=== PATIENT | female | born 1980 | race Caucasian/White ===

== ENCOUNTER 2020-07-30 12:09 | Observation (INO) | payer BC ==
[2020-07-30] MEDS ORDERED: Sodium Chloride 0.9% 10 ML Syringe FLUSH PRN (13:53)
[2020-07-30] MEDS ORDERED: Sodium Chloride 0.9% 10 ML SDV IV PRN (13:53)
[2020-07-30] MEDS ORDERED: Sodium Chloride 0.9% 2.5 ML Syringe FLUSH PRN (13:53)
[2020-07-30] MEDS ORDERED: Lactated Ringers 1,000 ML IV SCH ×2 (14:00→15:00)
--- NOTE | 2020-07-30 15:57 | US ---
INDICATION: Spotting. Contractions TECHNIQUE: Limited transabdominal obstetrical ultrasound, with a biophysical profile. COMPARISON: None available FINDINGS: A single live intrauterine gestation is seen in cephalic presentation. There is cardiac activity with a heart rate of 133-137 BPM. measurements are not performed and anatomy is not evaluated. The placenta is anterior fundal, to the maternal right. The amniotic fluid single deepest pocket measures 3 cm with a measured ÁLVARO of 4.5 cm. A biophysical profile was performed with a score of 2/2 for movements, tone and amniotic fluid, as score 0/2 for breathing, and a total score of 6/8. Neither ovary is visualized. IMPRESSION: A single live intrauterine gestation. A biophysical profile score of 6/8. A low ÁLVARO at 4.5 cm, however the amniotic Fluid single deepest pocket is within normal limits at 3 cm. Correlate clinically. measurements are not performed and anatomy is not evaluated. Follow-up, as clinically indicated. Dictated by Hakan Garcia MD @ Jul 30 2020 3:50PM Signed by Dr. Hakan Garcia @ Jul 30 2020 3:56PM
--- NOTE | 2020-07-30 16:01 | US ---
INDICATION: Spotting and contractions TECHNIQUE: Limited transvaginal obstetrical ultrasound for evaluation of the cervix COMPARISON: None available FINDINGS/IMPRESSION: The cervix is closed, measuring up to 3.7 cm in length. Focal contour irregularity near the internal cervical os may be related to a contraction. Please refer to the transabdominal obstetrical ultrasound report for further detail on the intra uterine gestation. Dictated by Hakan Garcia MD @ Jul 30 2020 3:50PM Signed by Dr. Hakan Garcia @ Jul 30 2020 3:59PM
[2020-07-30] MEDS: Lactated Ringers 1,000 ML IV SCH ×2 (16:20→22:22)
[2020-07-30] MEDS: Betamethasone Acetate/Betamethasone Sod Phosphate 30 MG/5 ML MDV IM ONE (22:17)
[2020-07-30] MEDS: Enoxaparin 40 MG/0.4 ML Syringe SUBCUT SCH (22:20)
[2020-07-30] MEDS: Acetaminophen 500 MG Tab PO PRN (23:34)
[2020-07-31] MEDS: Lactated Ringers 1,000 ML IV SCH ×2 (05:52→14:10)
--- NOTE | 2020-07-31 09:22 | US ---
INDICATION: Previous low ÁLVARO. COMPARISON: Ob ultrasound 07/30/2020. TECHNIQUE: Limited biophysical profile. Real time hays scale imaging of the fetus was performed. Without non-stress testing. FINDINGS: Sonographic imaging demonstrates a single living intrauterine gestation. Fetus demonstrates a regular cardiac rate of 136 beats per minute. Fetus has a transverse orientation with head to the maternal right. The amniotic fluid volume appears normal and there is a four-quadrant fluid volume index measurement of 9.02 cm. IMPRESSION: Normal ÁLVARO measuring 9.02 cm on today`s exam. Dictated by Justa Casillas MD @ Jul 31 2020 9:16AM Signed by Dr. Justa Casillas @ Jul 31 2020 9:21AM
--- NOTE | 2020-07-31 11:39 | US ---
EXAM DATE: 07/30/20 PATIENT'S AGE: 39 Patient: ZACARIAS FORD Facility: [facility] Site . Site : [id number] Study: US-OB Pelvis -07/30/2020 3:19:16 PM Ordering Physician: Kiko Arteaga Final Report: INDICATION: Spotting. Contractions TECHNIQUE: Limited transabdominal obstetrical ultrasound, with a biophysical profile. COMPARISON: None available FINDINGS: A single live intrauterine gestation is seen in cephalic presentation. There is cardiac activity with a heart rate of 133-137 BPM. measurements are not performed and anatomy is not evaluated. The placenta is anterior fundal, to the maternal right. The amniotic fluid single deepest pocket measures 3 cm with a measured ÁLVARO of 4.5 cm. A biophysical profile was performed with a score of 2/2 for movements, tone and amniotic fluid, as score 0/2 for breathing, and a total score of 6/8. Neither ovary is visualized. IMPRESSION: A single live intrauterine gestation. A biophysical profile score of 6/8. A low ÁLVARO at 4.5 cm, however the amniotic Fluid single deepest pocket is within normal limits at 3 cm. Correlate clinically. measurements are not performed and anatomy is not evaluated. Follow- up, as clinically indicated. Dictated by Hakan Garcia MD @ Jul 30 2020 3:50PM Signed by: Hakan Garcia MD @07/30/2020 3:56:24 PM (Electronic Signature) Report Signed by Proxy. SILVINA
[2020-07-31] MEDS: Acetaminophen 500 MG Tab PO PRN (14:11)
--- NOTE | 2020-07-31 19:56 | US ---
INDICATION: Follow-up reportedly low amniotic fluid volume index. TECHNIQUE: Limited transabdominal obstetrical ultrasound. COMPARISON: July 30, 2020. FINDINGS: Single living intrauterine . Transverse lie with head toward the maternal right side. heart rate 136 beats per minute. Amniotic fluid volume index 9.0 cm previously 4.8 cm. IMPRESSION: Single living intrauterine . heart rate 136 beats per minute. Amniotic fluid volume index is now calculated at 9 cm. Dictated by Jozef Miller MD @ Jul 31 2020 7:52PM Signed by Dr. Jozef Miller @ Jul 31 2020 7:56PM
[2020-07-31] MEDS: Enoxaparin 40 MG/0.4 ML Syringe SUBCUT SCH (20:37)
[2020-07-31] MEDS: Betamethasone Acetate/Betamethasone Sod Phosphate 30 MG/5 ML MDV IM ONE (21:31)
[2020-07-31 21:51] VITALS: BP 134/78; PULSE 94
== END 2020-07-31 21:40 | disposition home or self-care (01) ==
LOC: MW.OBCHECK 12:09 → MW.OB 12:42 → MW.OBCHECK 16:30
PROVIDERS: ADMIT Obstetrics & Gynecology; ATTEND Obstetrics & Gynecology
DX: O26.853 Spotting complicating pregnancy, third trimester (principal); O98.513 Other viral diseases complicating pregnancy, third trimester; U07.1 COVID-19; O41.03X0 Oligohydramnios, third trimester, not applicable or unspecified; Z3A.32 32 weeks gestation of pregnancy
CPT/HCPCS: 59025; 76815; 76817; 76819; 81003; 84112; 87480; 87510; 87635; 87660; A9270; J0702; J1650; J7120; U0002

== ENCOUNTER 2020-08-22 20:05 | Inpatient (IN) | payer BC ==
[2020-08-22] MEDS: Lactated Ringers 1,000 ML IV SCH ×2 (22:00→22:42)
[2020-08-22] MEDS ORDERED: Water For Irrigation,Sterile 1,000 ML Container IRR PRN (22:02)
[2020-08-22] MEDS ORDERED: Misoprostol 200 MCG Tab PO PRN (22:02)
[2020-08-22] MEDS ORDERED: Nalbuphine 10 MG/1 ML Vial IVPUSH PRN (22:02)
[2020-08-22] MEDS ORDERED: Tranexamic Acid 1,000 MG in Sodium Chloride 0.9% 100 ML IV PRN (22:02)
[2020-08-22] MEDS ORDERED: Butorphanol 1 MG/ML SDV IVPUSH PRN (22:02)
[2020-08-22] MEDS ORDERED: Sodium Chloride 0.9% 10 ML Syringe FLUSH PRN (22:02)
[2020-08-22] MEDS ORDERED: Methylergonovine 0.2 MG/1 ML Amp IM PRN (22:02)
[2020-08-22] MEDS ORDERED: Sodium Chloride 0.9% 10 ML SDV IV PRN (22:02)
[2020-08-22] MEDS ORDERED: Lidocaine 1% 50 ML MDV INJECT PRN (22:02)
[2020-08-22] MEDS ORDERED: Carboprost Tromethamine 250 MCG/1 ML Amp IM PRN (22:02)
[2020-08-22] MEDS ORDERED: Sodium Chloride 0.9% 2.5 ML Syringe FLUSH PRN (22:02)
[2020-08-22] MEDS ORDERED: Betamethasone Acetate/Betamethasone Sod Phosphate 30 MG/5 ML MDV IM ONE (22:04)
[2020-08-22] MEDS ORDERED: Ampicillin 2 GM in Sodium Chloride 0.9% 100 ML IV ONE (22:05)
[2020-08-22] MEDS ORDERED: Oxytocin/0.9 % Sodium Chloride 30 UNIT/500 ML BAG IV SCH (22:15)
[2020-08-22] MEDS ORDERED: fentaNYL 100 MCG/2 ML SDV ONE (22:23)
[2020-08-22] MEDS ORDERED: Ropivacaine HCl/PF 100 ML ONE (22:24)
[2020-08-22 22:46] LABS: BLOOD UREA NITROGEN,BUN 8 mg/dL (7.0-18.0); CARBON DIOXIDE,CO2 21.2 mmol/L (21.0-32.0); CHLORIDE,CL 101 mmol/L (98-107); GLUCOSE RANDOM 109 mg/dL (74-106); POTASSIUM,K 3.8 mmol/L (3.5-5.1); SODIUM,NA 136 mmol/L (136-145)
--- NOTE | 2020-08-22 22:55 | PCM.PREANE ---
Preanesthetic Assessment - Anesthesia/Transfusion/Family Hx Anesthesia History: Prior Anesthesia Without Reaction Family History of Anesthesia Reaction: No Transfusion History: No Prior Transfusion(s) - Physical Assessment NPO Status Date: 08/22/20 NPO Status Time: 20:00 ASA Class: 2 - Lab Values: Laboratory Last Values WBC 11.68 K/uL (4.0-11.0) H 08/22/20 22:00 RBC 4.30 M/uL (4.30-5.90) 08/22/20 22:00 Hgb 10.6 g/dL (12.0-16.0) L 08/22/20 22:00 Hct 34.3 % (36.0-46.0) L 08/22/20 22:00 MCV 79.8 fL (80.0-98.0) L 08/22/20 22:00 MCH 24.7 pg (27.0-32.0) L 08/22/20 22:00 MCHC 30.9 g/dL (31.0-37.0) L 08/22/20 22:00 RDW Std Deviation 41.1 fl (28.0-62.0) 08/22/20 22:00 RDW Coeff of Gianna 14 % (11.0-15.0) 08/22/20 22:00 Plt Count 228 K/uL (150-400) 08/22/20 22:00 MPV 10.10 fL (7.40-12.00) 08/22/20 22:00 Nucleated RBC % 0.0 /100WBC 08/22/20 22:00 Nucleated RBCs # 0 K/uL 08/22/20 22:00 Sodium 136 mmol/L (136-145) 08/22/20 22:00 Potassium 3.8 mmol/L (3.5-5.1) 08/22/20 22:00 Chloride 101 mmol/L (98-107) 08/22/20 22:00 Carbon Dioxide 21.2 mmol/L (21.0-32.0) 08/22/20 22:00 BUN 8 mg/dL (7.0-18.0) 08/22/20 22:00 Creatinine 0.6 mg/dL (0.6-1.0) 08/22/20 22:00 Est Cr Clr Drug Dosing TNP 08/22/20 22:00 Estimated GFR (MDRD) > 60.0 ml/min 08/22/20 22:00 Glucose 109 mg/dL (74-106) H 08/22/20 22:00 Uric Acid 5.0 mg/dL (2.6-7.2) 08/22/20 22:00 Calcium 8.7 mg/dL (8.5-10.1) 08/22/20 22:00 Total Bilirubin 0.2 mg/dL (0.2-1.0) 08/22/20 22:00 AST 12 IU/L (15-37) L 08/22/20 22:00 ALT 16 IU/L (14-63) 08/22/20 22:00 Alkaline Phosphatase 463 U/L (46-116) H 08/22/20 22:00 Total Protein 6.5 g/dL (6.4-8.2) 08/22/20 22:00 Albumin 2.8 g/dL (3.4-5.0) L 08/22/20 22:00 Globulin 3.7 g/dL (2.6-4.0) 08/22/20 22:00 Albumin/Globulin Ratio 0.8 (0.9-1.6) L 08/22/20 22:00 - Allergies Allergies/Adverse Reactions: Allergies Allergy/AdvReac Type Severity Reaction Status Date / Time No Known Allergies Allergy Verified 07/30/20 17:09 - Acknowledgements Anesthesia Type Planned: Epidural Pt an Appropriate Candidate for the Planned Anesthesia: Yes Alternatives and Risks of Anesthesia Discussed w Pt/Guardian: Yes Pt/Guardian Understands and Agrees with Anesthesia Plan: Yes PreAnesthesia Questionnaire HEENT History: Reports: Other (See Below) Other HEENT History: wears contacts Genitourinary History: Reports: UTI, Recurrent 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: Psychiatric History: Reports: ADHD, Anxiety, Depression Endocrine/Metabolic History: Reports: None, Other (See Below) Other Endocrine/Metabolic History: hyperprolactinemia - Infectious Disease History Infectious Disease History: Reports: Novel Coronavirus - Past Surgical History Head Surgeries/Procedures: Reports: None HEENT Surgical History: Reports: None Female Surgical History: Reports: Section, LEEP Endocrine Surgical History: Reports: None - HOME MEDS Home Medications: Home Meds Desvenlafaxine Succinate [Pristiq] 100 mg PO DAILY 01/13/17 [History] Methylphenidate HCl [Concerta] 54 mg PO ASDIRECTED PRN 01/13/17 [History] - CURRENT (IN HOUSE) MEDS Current Meds: Current Medications Butorphanol Tartrate (Stadol) 1 mg IVPUSH Q1H PRN PRN Reason: Pain Carboprost Tromethamine (Hemabate Ds) 250 mcg IM ASDIRECTED PRN PRN Reason: Post Hemorrhage Lactated Ringer's (Ringers, Lactated) 1,000 mls @ 150 mls/hr IV ASDIRECTED ERIKA Oxytocin/Sodium Chloride (Oxytocin 30 Unit/500 Ml-Ns) 30 unit in 500 mls @ 999 mls/hr IV TITRATE ERIKA Tranexamic Acid 1,000 mg/ (Sodium Chloride) 110 mls @ 660 mls/hr IV ONETIME PRN PRN Reason: Bleeding Lidocaine HCl (Xylocaine 1%) 50 ml INJECT ONETIME PRN PRN Reason: Laceration repair Methylergonovine Maleate (Methergine) 0.2 mg IM ASDIRECTED PRN PRN Reason: Post Hemorrhage Misoprostol (Cytotec) 200 mcg PO ONETIME PRN PRN Reason: Post Hemorrhage Nalbuphine HCl (Nubain) 10 mg IVPUSH Q1H PRN PRN Reason: Pain (severe 7-10) Sodium Chloride (Saline Flush) 10 ml FLUSH ASDIRECTED PRN PRN Reason: Keep Vein Open Sodium Chloride (Saline Flush) 2.5 ml FLUSH ASDIRECTED PRN PRN Reason: Keep Vein Open Sodium Chloride (Normal Saline) 10 ml IV ASDIRECTED PRN PRN Reason: IV Use Sterile Water (Sterile Water For Irrigation) 1,000 ml IRR ASDIRECTED PRN PRN Reason: delivery Discontinued Medications Betamethasone Acet/Betameth SodPhos (Celestone Soluspan 6 Mg/Ml) 12 mg IM ONETIME ONE Stop: 08/22/20 22:05 Last Admin: 08/22/20 22:24 Dose: 12 mg Documented by: Fentanyl (Sublimaze) Confirm Administered Dose 100 mcg .ROUTE .STK-MED ONE Stop: 08/22/20 22:24 Ampicillin Sodium 2 gm/ Sodium (Chloride) 100 mls @ 200 mls/hr IV ONETIME ONE Stop: 08/22/20 22:34 Last Admin: 08/22/20 22:16 Dose: 200 mls/hr Documented by: Ropivacaine (Naropin 0.2%) Confirm Administered Dose 100 mls @ as directed .ROUTE .[facility] ONE Stop: 08/22/20 22:25
--- NOTE | 2020-08-22 22:58 | PCM.PRNOTE ---
- Free Text/Narrative Note: Anes Note Patient requests epidural for L&D. Sitting position, level L3-L4 midline approach. Sterile technique. Chloraprep scrub to lumbar area. Sterile fenestrated drape applied. Epidural space easily achieved single attempt with ease using LUKE technique. LUKE at 3 cm. Cath threaded 5 cm with ease. Cath secured using sterile clear adhesive dressing. Test 1040 3 cc 1.5% lido with epi negative Load 10 cc 0.2 % ropiviciane with 1 mcg cc fentanyl in slow divided doses at 1043 146 Pump started with 90 cc same solution. Rate is 8 cc hr with 6 cc q 20 min prn bolus. Claudette well. Time with patient [id number] True Skinner CRNA
[2020-08-23] MEDS ORDERED: Ampicillin 1 GM in Sodium Chloride 0.9% 50 ML IV SCH (01:30)
[2020-08-23] MEDS: Lactated Ringers 1,000 ML IV SCH (01:51)
[2020-08-23] MEDS ORDERED: Benzocaine/Menthol 20%-0.5% Spray 78 GM Cannister TOP PRN (04:33)
[2020-08-23] MEDS ORDERED: Bisacodyl 10 MG Supp RECTAL PRN (04:33)
[2020-08-23] MEDS ORDERED: Docusate Sodium 100 MG Cap PO PRN (04:33)
[2020-08-23] MEDS ORDERED: Ibuprofen 400 MG Tab PO PRN (04:33)
[2020-08-23] MEDS ORDERED: Lanolin 100% Cream 7 GM Tube TOP PRN (04:33)
[2020-08-23] MEDS ORDERED: Acetaminophen 500 MG Tab PO PRN (04:33)
[2020-08-23] MEDS ORDERED: Witch Hazel Medicated Pads 40/Jar TOP PRN (04:33)
--- NOTE | 2020-08-23 05:46 | PCM.POSTAN ---
POST ANESTHESIA ASSESSMENT - MENTAL STATUS Mental Status: Alert - RESPIRATORY Respiratory Status: Respiratory Rate WNL - CARDIOVASCULAR CV Status: Pulse Rate WNL - GASTROINTESTINAL GI Status: No Symptoms - POST OP HYDRATION Hydration Status: Adequate & Stable
[2020-08-23] MEDS: Acetaminophen 500 MG Tab PO PRN ×4 (06:30→21:15)
[2020-08-23] MEDS: Ibuprofen 800 MG Tab PO PRN ×3 (09:44→22:53)
--- NOTE | 2020-08-24 08:05 | PCM48HPAN ---
Post Anesthesia Note - EVALUATION WITHIN 48HRS OF ANESTHETIC Vital Signs in Normal Range: Yes Patient Participated in Evaluation: Yes Respiratory Function Stable: Yes Airway Patent: Yes Cardiovascular Function Stable: Yes Hydration Status Stable: Yes Pain Control Satisfactory: Yes Nausea and Vomiting Control Satisfactory: Yes Mental Status Recovered: Yes Vital Signs: Last Vital Signs Temp 36.3 C 08/24/20 06:00 Pulse 91 08/24/20 06:00 Resp 16 08/24/20 06:00 BP 118/75 08/24/20 06:00 Pulse Ox 100 08/24/20 06:00
[2020-08-24] MEDS: Acetaminophen 500 MG Tab PO PRN ×2 (08:50→15:39)
[2020-08-24] MEDS: Ibuprofen 800 MG Tab PO PRN ×3 (08:51→21:32)
--- NOTE | 2020-08-24 11:59 | PCM.DEL ---
L & D Note - General Info Date of Service: 08/23/20 - Delivery Note Labor: Spontaneous Delivery Outcome: Livebirth Delivery Mode: Spontaneous Presentation: Right Occiput Anterior (SHAINA) Nuchal Cord: None Anesthesia Type: Epidural Amniotic Fluid Description: Clear Laceration: None Placenta: Intact, Spontaneous Cord: 3 Vessels Estimated Blood Loss: 200 Resuscitation Needed: Yes Provider: Jenni Hoover Score 1 min: 4 Score 5 min: 5 Second Stage Interventions: Reports: Pushing Effectively - General Info Date of Service: 08/23/20 - Patient Data Vitals - Most Recent: Last Vital Signs Temp 36.9 C 08/24/20 08:40 Pulse 82 08/24/20 08:40 Resp 16 08/24/20 08:40 BP 119/76 08/24/20 08:40 Pulse Ox 98 08/24/20 08:40 Weight - Most Recent: 165 lb Lab Results Last 24 Hours: Laboratory Results - last 24 hr 08/22/20 08/24/20 Range/Units 23:20 06:00 Hgb 8.8 L (12.0-16.0) g/dL Hct 28.2 L (36.0-46.0) % Group B Strep (PCR) NEGATIVE (NEGATIVE) Med Orders - Current: Current Medications Acetaminophen (Tylenol Extra Strength) 500 mg PO Q4H PRN PRN Reason: Pain Acetaminophen (Tylenol Extra Strength) 1,000 mg PO Q4H PRN PRN Reason: Pain Last Admin: 08/24/20 08:50 Dose: 1,000 mg Documented by: Benzocaine/Menthol (Dermoplast Pain Relief 20%-0.5% [place]) 78 gm TOP ASDIRECTED PRN PRN Reason: Perineal Comfort Measure Bisacodyl (Dulcolax) 10 mg RECTAL ONETIME PRN PRN Reason: Constipation Butorphanol Tartrate (Stadol) 1 mg IVPUSH Q1H PRN PRN Reason: Pain Carboprost Tromethamine (Hemabate Ds) 250 mcg IM ASDIRECTED PRN PRN Reason: Post Hemorrhage Docusate Sodium (Colace) 100 mg PO BID PRN PRN Reason: Constipation Emollient Ointment (Lansinoh Hpa) 0 gm TOP ASDIRECTED PRN PRN Reason: Sore Nipples Lactated Ringer's (Ringers, Lactated) 1,000 mls @ 150 mls/hr IV ASDIRECTED [facility] Last Admin: 08/23/20 01:51 Dose: 125 mls/hr Documented by: Oxytocin/Sodium Chloride (Oxytocin 30 Unit/500 Ml-Ns) 30 unit in 500 mls @ 999 mls/hr IV TITRATE [facility] Tranexamic Acid 1,000 mg/ (Sodium Chloride) 110 mls @ 660 mls/hr IV ONETIME PRN PRN Reason: Bleeding Ampicillin Sodium 1 gm/ Sodium (Chloride) 50 mls @ 100 mls/hr IV Q4H [facility] Last Admin: 08/23/20 02:45 Dose: 100 mls/hr Documented by: Ibuprofen (Motrin) 400 mg PO Q4H PRN PRN Reason: Pain Ibuprofen (Motrin) 800 mg PO Q6H PRN PRN Reason: Pain Last Admin: 08/24/20 08:51 Dose: 800 mg Documented by: Lidocaine HCl (Xylocaine 1%) 50 ml INJECT ONETIME PRN PRN Reason: Laceration repair Methylergonovine Maleate (Methergine) 0.2 mg IM ASDIRECTED PRN PRN Reason: Post Hemorrhage Misoprostol (Cytotec) 200 mcg PO ONETIME PRN PRN Reason: Post Hemorrhage Nalbuphine HCl (Nubain) 10 mg IVPUSH Q1H PRN PRN Reason: Pain (severe 7-10) Sodium Chloride (Saline Flush) 10 ml FLUSH ASDIRECTED PRN PRN Reason: Keep Vein Open Sodium Chloride (Saline Flush) 2.5 ml FLUSH ASDIRECTED PRN PRN Reason: Keep Vein Open Sodium Chloride (Normal Saline) 10 ml IV ASDIRECTED PRN PRN Reason: IV Use Sterile Water (Sterile Water For Irrigation) 1,000 ml IRR ASDIRECTED PRN PRN Reason: delivery Witch Kami (Tucks) 1 pad TOP ASDIRECTED PRN PRN Reason: comfort care Discontinued Medications Betamethasone Acet/Betameth SodPhos (Celestone Soluspan 6 Mg/Ml) 12 mg IM ONETIME ONE Stop: 08/22/20 22:05 Last Admin: 08/22/20 22:24 Dose: 12 mg Documented by: Fentanyl (Sublimaze) Confirm Administered Dose 100 mcg .ROUTE .STK-MED ONE Stop: 08/22/20 22:24 Ampicillin Sodium 2 gm/ Sodium (Chloride) 100 mls @ 200 mls/hr IV ONETIME ONE Stop: 08/22/20 22:34 Last Admin: 08/22/20 22:16 Dose: 200 mls/hr Documented by: Ropivacaine (Naropin 0.2%) Confirm Administered Dose 100 mls @ as directed .ROUTE .STK-MED ONE Stop: 08/22/20 22:25 - Problem List Review Problem List Initiated/Reviewed/Updated: Yes - Assessment Assessment:: 39yo at 35w6d presented with labor and SROM. s/p . Baby required resuccitation but has improved and is off O2. - Plan Plan:: Routine care. Discharge pending baby status.
--- NOTE | 2020-08-24 12:14 | PCM.PNPP ---
- General Info Date of Service: 08/24/20 Functional Status: Reports: Pain Controlled, Tolerating Diet, Ambulating, Urinating, Other (Attempting to breastfeed, has not produced a lot of milk so far. Baby is doing well, off O2.) - Review of Systems General: Reports: No Symptoms HEENT: Reports: No Symptoms Pulmonary: Reports: No Symptoms Cardiovascular: Reports: No Symptoms Gastrointestinal: Reports: No Symptoms Genitourinary: Reports: No Symptoms Musculoskeletal: Reports: No Symptoms Skin: Reports: No Symptoms Neurological: Reports: No Symptoms Psychiatric: Reports: No Symptoms - Patient Data Vital Signs - Most Recent: Last Vital Signs Temp 36.9 C 08/24/20 08:40 Pulse 82 08/24/20 08:40 Resp 16 08/24/20 08:40 BP 119/76 08/24/20 08:40 Pulse Ox 98 08/24/20 08:40 Weight - Most Recent: 165 lb Lab Results - Last 24 Hours: Laboratory Results - last 24 hr 08/22/20 08/24/20 Range/Units 23:20 06:00 Hgb 8.8 L (12.0-16.0) g/dL Hct 28.2 L (36.0-46.0) % Group B Strep (PCR) NEGATIVE (NEGATIVE) Med Orders - Current: Current Medications Acetaminophen (Tylenol Extra Strength) 500 mg PO Q4H PRN PRN Reason: Pain Acetaminophen (Tylenol Extra Strength) 1,000 mg PO Q4H PRN PRN Reason: Pain Last Admin: 08/24/20 08:50 Dose: 1,000 mg Documented by: Benzocaine/Menthol (Dermoplast Pain Relief 20%-0.5% [place]) 78 gm TOP ASDIRECTED PRN PRN Reason: Perineal Comfort Measure Bisacodyl (Dulcolax) 10 mg RECTAL ONETIME PRN PRN Reason: Constipation Butorphanol Tartrate (Stadol) 1 mg IVPUSH Q1H PRN PRN Reason: Pain Carboprost Tromethamine (Hemabate Ds) 250 mcg IM ASDIRECTED PRN PRN Reason: Post Hemorrhage Docusate Sodium (Colace) 100 mg PO BID PRN PRN Reason: Constipation Emollient Ointment (Lansinoh Hpa) 0 gm TOP ASDIRECTED PRN PRN Reason: Sore Nipples Lactated Ringer's (Ringers, Lactated) 1,000 mls @ 150 mls/hr IV ASDIRECTED [facility] Last Admin: 08/23/20 01:51 Dose: 125 mls/hr Documented by: Oxytocin/Sodium Chloride (Oxytocin 30 Unit/500 Ml-Ns) 30 unit in 500 mls @ 999 mls/hr IV TITRATE [facility] Tranexamic Acid 1,000 mg/ (Sodium Chloride) 110 mls @ 660 mls/hr IV ONETIME PRN PRN Reason: Bleeding Ampicillin Sodium 1 gm/ Sodium (Chloride) 50 mls @ 100 mls/hr IV Q4H [facility] Last Admin: 08/23/20 02:45 Dose: 100 mls/hr Documented by: Ibuprofen (Motrin) 400 mg PO Q4H PRN PRN Reason: Pain Ibuprofen (Motrin) 800 mg PO Q6H PRN PRN Reason: Pain Last Admin: 08/24/20 08:51 Dose: 800 mg Documented by: Lidocaine HCl (Xylocaine 1%) 50 ml INJECT ONETIME PRN PRN Reason: Laceration repair Methylergonovine Maleate (Methergine) 0.2 mg IM ASDIRECTED PRN PRN Reason: Post Hemorrhage Misoprostol (Cytotec) 200 mcg PO ONETIME PRN PRN Reason: Post Hemorrhage Nalbuphine HCl (Nubain) 10 mg IVPUSH Q1H PRN PRN Reason: Pain (severe 7-10) Sodium Chloride (Saline Flush) 10 ml FLUSH ASDIRECTED PRN PRN Reason: Keep Vein Open Sodium Chloride (Saline Flush) 2.5 ml FLUSH ASDIRECTED PRN PRN Reason: Keep Vein Open Sodium Chloride (Normal Saline) 10 ml IV ASDIRECTED PRN PRN Reason: IV Use Sterile Water (Sterile Water For Irrigation) 1,000 ml IRR ASDIRECTED PRN PRN Reason: delivery Witch Kami (Tucks) 1 pad TOP ASDIRECTED PRN PRN Reason: comfort care Discontinued Medications Betamethasone Acet/Betameth SodPhos (Celestone Soluspan 6 Mg/Ml) 12 mg IM ONETIME ONE Stop: 08/22/20 22:05 Last Admin: 08/22/20 22:24 Dose: 12 mg Documented by: Fentanyl (Sublimaze) Confirm Administered Dose 100 mcg .ROUTE .STK-MED ONE Stop: 08/22/20 22:24 Ampicillin Sodium 2 gm/ Sodium (Chloride) 100 mls @ 200 mls/hr IV ONETIME ONE Stop: 08/22/20 22:34 Last Admin: 08/22/20 22:16 Dose: 200 mls/hr Documented by: Ropivacaine (Naropin 0.2%) Confirm Administered Dose 100 mls @ as directed .ROUTE .STK-MED ONE Stop: 08/22/20 22:25 - Infant Interaction Infant Disposition, : to Nursery Interaction: Holding Infant Feeding: Attempted ; Nursed Fair/Poor Support Person: - Recovery Exam Fundal Tone: Firm Fundal Level: 1 Fingerbreadths Below Umbilicus Fundal Placement: Midline Lochia Amount: Scant Lochia Color: Rubra/Red Perineum Description: Intact, Minimal Bruising/Swelling Episiotomy/Laceration: None Bladder Status: Voiding Urinary Elimination: Voided - Exam General: Alert, Oriented, Cooperative, No Acute Distress HEENT: Pupils Equal, Pupils Reactive Neck: Supple, Trachea Midline, No JVD Lungs: Normal Respiratory Effort GI/Abdominal Exam: Soft, Non-Tender, No Distention Extremities: Normal Inspection, Normal Range of Motion, Non-Tender, No Pedal Edema Skin: Warm, Dry, Intact Neurological: No New Focal Deficit Psy/Mental Status: Alert, Normal Affect, Normal Mood - Problem List Review Problem List Initiated/Reviewed/Updated: Yes - Assessment Assessment:: 39yo at 35w6d presented with labor and SROM, PPD1 s/p . - Plan Plan:: - recovering well, ambulating and tolerating PO - , baby doing well - Hgb 8.8, bleeding light, denies s/s of anemia. Advised to start iron supplements Plan for discharge tomorrow.
--- NOTE | 2020-08-25 07:57 | PCM48HPAN ---
Post Anesthesia Note - EVALUATION WITHIN 48HRS OF ANESTHETIC Vital Signs in Normal Range: Yes Patient Participated in Evaluation: Yes Respiratory Function Stable: Yes Airway Patent: Yes Cardiovascular Function Stable: Yes Hydration Status Stable: Yes Pain Control Satisfactory: Yes Nausea and Vomiting Control Satisfactory: Yes Mental Status Recovered: Yes Vital Signs: Last Vital Signs Temp 36.7 C 08/25/20 03:25 Pulse 95 08/25/20 03:25 Resp 17 08/25/20 03:25 BP 114/70 08/25/20 03:25 Pulse Ox 97 08/25/20 03:25 - COMMENTS/OBSERVATIONS Free Text/Narrative:: The patient was awake and ambulating, and appeared in no acute distress. She has no complaints at this time. There were no apparent anesthetic complications at this time. Discharge from anesthesia service.
--- NOTE | 2020-08-25 10:11 | PCM.PNPP ---
- General Info Date of Service: 08/25/20 Functional Status: Reports: Pain Controlled, Tolerating Diet, Ambulating, Urinating - Review of Systems General: Reports: No Symptoms HEENT: Reports: No Symptoms Pulmonary: Reports: No Symptoms Cardiovascular: Reports: No Symptoms Gastrointestinal: Reports: No Symptoms Genitourinary: Reports: No Symptoms Musculoskeletal: Reports: No Symptoms Skin: Reports: No Symptoms Neurological: Reports: No Symptoms Psychiatric: Reports: No Symptoms - Patient Data Vital Signs - Most Recent: Last Vital Signs Temp 36.6 C 08/25/20 07:45 Pulse 95 08/25/20 07:45 Resp 17 08/25/20 07:45 BP 123/89 08/25/20 07:45 Pulse Ox 96 08/25/20 07:45 Weight - Most Recent: 165 lb Med Orders - Current: Current Medications Acetaminophen (Tylenol Extra Strength) 500 mg PO Q4H PRN PRN Reason: Pain Acetaminophen (Tylenol Extra Strength) 1,000 mg PO Q4H PRN PRN Reason: Pain Last Admin: 08/24/20 15:39 Dose: 1,000 mg Documented by: Benzocaine/Menthol (Dermoplast Pain Relief 20%-0.5% Hickman) 78 gm TOP ASDIRECTED PRN PRN Reason: Perineal Comfort Measure Bisacodyl (Dulcolax) 10 mg RECTAL ONETIME PRN PRN Reason: Constipation Butorphanol Tartrate (Stadol) 1 mg IVPUSH Q1H PRN PRN Reason: Pain Carboprost Tromethamine (Hemabate Ds) 250 mcg IM ASDIRECTED PRN PRN Reason: Post Hemorrhage Docusate Sodium (Colace) 100 mg PO BID PRN PRN Reason: Constipation Emollient Ointment (Lansinoh Hpa) 0 gm TOP ASDIRECTED PRN PRN Reason: Sore Nipples Lactated Ringer's (Ringers, Lactated) 1,000 mls @ 150 mls/hr IV ASDIRECTED ERIKA Last Admin: 08/23/20 01:51 Dose: 125 mls/hr Documented by: Oxytocin/Sodium Chloride (Oxytocin 30 Unit/500 Ml-Ns) 30 unit in 500 mls @ 999 mls/hr IV TITRATE ERIKA Tranexamic Acid 1,000 mg/ (Sodium Chloride) 110 mls @ 660 mls/hr IV ONETIME PRN PRN Reason: Bleeding Ampicillin Sodium 1 gm/ Sodium (Chloride) 50 mls @ 100 mls/hr IV Q4H ERIKA Last Admin: 08/23/20 02:45 Dose: 100 mls/hr Documented by: Ibuprofen (Motrin) 400 mg PO Q4H PRN PRN Reason: Pain Ibuprofen (Motrin) 800 mg PO Q6H PRN PRN Reason: Pain Last Admin: 08/24/20 21:32 Dose: 800 mg Documented by: Lidocaine HCl (Xylocaine 1%) 50 ml INJECT ONETIME PRN PRN Reason: Laceration repair Methylergonovine Maleate (Methergine) 0.2 mg IM ASDIRECTED PRN PRN Reason: Post Hemorrhage Misoprostol (Cytotec) 200 mcg PO ONETIME PRN PRN Reason: Post Hemorrhage Nalbuphine HCl (Nubain) 10 mg IVPUSH Q1H PRN PRN Reason: Pain (severe 7-10) Sodium Chloride (Saline Flush) 10 ml FLUSH ASDIRECTED PRN PRN Reason: Keep Vein Open Sodium Chloride (Saline Flush) 2.5 ml FLUSH ASDIRECTED PRN PRN Reason: Keep Vein Open Sodium Chloride (Normal Saline) 10 ml IV ASDIRECTED PRN PRN Reason: IV Use Sterile Water (Sterile Water For Irrigation) 1,000 ml IRR ASDIRECTED PRN PRN Reason: delivery Witch Kami (Tucks) 1 pad TOP ASDIRECTED PRN PRN Reason: comfort care Discontinued Medications Betamethasone Acet/Betameth SodPhos (Celestone Soluspan 6 Mg/Ml) 12 mg IM ONETIME ONE Stop: 08/22/20 22:05 Last Admin: 08/22/20 22:24 Dose: 12 mg Documented by: Fentanyl (Sublimaze) Confirm Administered Dose 100 mcg .ROUTE .STK-MED ONE Stop: 08/22/20 22:24 Last Admin: 08/25/20 08:00 Dose: Not Given Documented by: Ampicillin Sodium 2 gm/ Sodium (Chloride) 100 mls @ 200 mls/hr IV ONETIME ONE Stop: 08/22/20 22:34 Last Admin: 08/22/20 22:16 Dose: 200 mls/hr Documented by: Ropivacaine (Naropin 0.2%) Confirm Administered Dose 100 mls @ as directed .ROUTE .STK-MED ONE Stop: 08/22/20 22:25 Last Admin: 08/25/20 08:00 Dose: Not Given Documented by: - Interaction Disposition, : to Nursery Interaction: Holding Feeding: Attempted ; Nursed Fair/Poor Support Person: - Recovery Exam Fundal Tone: Firm Fundal Level: 1 Fingerbreadths Below Umbilicus Fundal Placement: Midline Lochia Amount: Scant Lochia Color: Rubra/Red Perineum Description: Intact, Minimal Bruising/Swelling Episiotomy/Laceration: None Bladder Status: Voiding Urinary Elimination: Voided - Exam General: Alert, Oriented, Cooperative, No Acute Distress HEENT: Pupils Equal, Pupils Reactive Neck: Supple, Trachea Midline, No JVD Lungs: Normal Respiratory Effort GI/Abdominal Exam: Soft, Non-Tender, No Distention Extremities: Normal Inspection, Normal Range of Motion, Non-Tender, No Pedal Edema Skin: Warm, Dry, Intact Neurological: No New Focal Deficit Psy/Mental Status: Alert, Normal Affect, Normal Mood - Problem List Review Problem List Initiated/Reviewed/Updated: Yes - Assessment Assessment:: 39yo at 35w6d presented with labor and SROM, PPD2 s/p . - Plan Plan:: - recovering well, ambulating and tolerating PO - and pumping, baby being treated for elevated bilirubin - Hgb 8.8, bleeding light, denies s/s of anemia. Advised to start iron supplements Plan for discharge today, plan to room in with baby.
--- NOTE | 2020-08-25 13:49 | OR ---
SURGEON: Moi Espinosa MD DATE OF PROCEDURE: 08/23/2020 INDICATION FOR PROCEDURE: A 39-year-old G5, P4-0-0-4 at 35 weeks and 6 days, presenting with labor. The patient noticed intermittent contractions starting from 2 days ago, but the contractions had become increasingly stronger and more intense around noon. She presented to Labor and Delivery for evaluation and was found to be 1/100%/-1 and saul every 3-5min. She then had spontaneous rupture of membranes with clear fluid. Discussed with patient, she is and the baby will likely need resuscitation after delivery and may need to be transferred to a high level facility with NICU. Alternative option is to transfer her prior to delivery, however, considering she is multiparous with history of rapid labors, there is high risk of delivery en route which would increase risk to the baby. Would advise her to delivery in [place], which she was agreeable. The patient was admitted for labor. She was given a dose of betamethasone for lung maturity. She was admitted previously on August 03 due to COVID positive and she was found to have oligohydramnios. She received IV hydration and a course of betamethasone and since then had a reassuring weekly BPP's with normal fluid. She otherwise had uncomplicated . She is GBS unknown and received ampicillin for GBS prophylaxis. She requested epidural and had good pain control. The baby had category 1 tracing. The patient has history of 1 vaginal delivery followed by a , then 2 successful VBACs. She desired trial of labor, reviewed the risks of trial of labor after including the risk of uterine rupture in approximately 1% of patients. She desires to proceed. PREOPERATIVE DIAGNOSES: 1. Richard intrauterine at 35 weeks and 6 days. 2. labor. 3. Hx of 1 previous POSTOPERATIVE DIAGNOSES: 1. Richard intrauterine at 35 weeks and 6 days. 2. labor. 3. Hx of 1 previous PROCEDURE PERFORMED: Normal spontaneous vaginal delivery. ANESTHESIA: Epidural. ANESTHESIOLOGIST: Dr. Ishmael Martin. FINDINGS: Viable female infant, score of 4 and 5, improved after resuscitation. weight of 5lb8oz. ESTIMATED BLOOD LOSS: 200 mL. DESCRIPTION OF PROCEDURE: The OR team, Anesthesia, adobe block maker were all informed of TOLAC and were available in house. With pelvic exam, it was noted that the patient had scarring on her cervix due to prior LEEP procedure. The cervical opening was very thin, but had a tight band due to the scarring and continued to be 1 cm despite contractions. Therefore, the cervix was manually stretched until it became more dilated and soft. She then continued to make progress on her own and became fully dilated. Category 1 tracing. She then began pushing with contractions. After about 5 minutes, the head delivered in occiput anterior position, restituted ROT. Anterior shoulder delivered easily, followed by posterior shoulder and remaining body. No nuchal cord was noted. The baby was placed on maternal chest and evaluated by awaiting nursery staff. The baby was stimulated, but had a weak cry and not a lot of movement. Therefore, the umbilical cord was clamped and cut after about 60 seconds and no longer pulsating, and the baby was taken over to the warmer and needed resuscitation. The umbilical cord gases were then obtained. The placenta was removed with gentle traction on the umbilical cord and fundal massage. It was noted to be intact with 3 vessel cord. Perineum was examined, no lacerations were noted. The fundus was firm and below the umbilicus and the bleeding was light. The cervix was felt to be intact. The patient tolerated the procedure well and was given care instructions. FINDINGS: Viable female , score and weight were pending. LUBA MCKNIGHT /[id number] SILVINA
[2020-08-25 17:21] VITALS: BP 135/93; PULSE 88
== END 2020-08-25 18:30 | disposition home or self-care (01) | DRG 560 ==
LOC: MW.OBCHECK 20:05 → MW.OB 20:06 → MW.OBCHECK 22:02 → MW.OB 22:02 → OBSVTOIN 08-23 04:04 → MW.OB 08-23 09:39
PROVIDERS: ADMIT Obstetrics & Gynecology; ATTEND Obstetrics & Gynecology
PROC: 10E0XZZ Delivery of Products of Conception, External Approach (ICD-10-PCS; principal; 2020-08-23)
PROC: 4A1HXCZ Monitoring of Products of Conception, Cardiac Rate, External Approach (ICD-10-PCS; 2020-08-23)
PROC: 10907ZC Drainage of Amniotic Fluid, Therapeutic from Products of Conception, Via Natural or Artificial Opening (ICD-10-PCS; 2020-08-23)
PROC: 3E0R3BZ Introduction of Anesthetic Agent into Spinal Canal, Percutaneous Approach (ICD-10-PCS; 2020-08-23)
DX: O60.14X0 Preterm labor third trimester with preterm delivery third trimester, not applicable or unspecified (principal); Z3A.35 35 weeks gestation of pregnancy; Z37.0 Single live birth; O76 Abnormality in fetal heart rate and rhythm complicating labor and delivery
CPT/HCPCS: 01967; 36415; 51702; 59025; 59409; 80053; 82570; 84156; 84550; 85014; 85018; 85027; 86592; 86850; 86900; 86901; 87653; 88307; A9270-GY; J0290; J0702; J2795; J3010; J7050; J7120